=== PATIENT | male | born 1935 | race Caucasian/White ===

== ENCOUNTER 2016-09-13 18:26 | Emergency (ER) | payer MEDICARE ==
--- NOTE | ~2016-09-13 | CT71 ---
[facility] A Service of [facility] & [facility] RADIOLOGY TEXT RESULTS PATIENT: ALBA LÓPEZ LOCATION: [facility] : 34 UNIT #: [id number] AGE: [address]: Zak Jolley DO SEX: M ORDER DR: [id number] [facility] [address] [place], [place] [address] [id number] E MR#: [id number] Acc #: [id number] NAME: ALBA LÓPEZ. : 1935 SEX: M STUDY DATE/TIME: 09/13/2016 18:40 UNIT: [facility] ROOM: STUDY DESCRIPTION: CT Head Wo Contrast Attending Physician: Zak Jolley D.O. Ordering Physician: Zak Jolley D.O. Primary Care Physician: Grant Juárez Jr., M.D. MEDICAL IMAGING REPORT This report is preliminary unless electronic signature is present EXAM CT head without IV contrast COMPARISON None. INDICATIONS 81-year-old male who fell last night and today, now with confusion and lethargy. This CT exam was performed with one or more of the following radiation dose reduction techniques: automatic exposure control, adjustment of mA and/or kV according to patient size, and iterative reconstruction. FINDINGS There is a crescent-shaped area of hypoattenuation over the right temporal and posterior parietal bones with a hyperdense 1.8 cm, subcutaneous hematoma seen posteriorly. These may reflect hematomas of varying ages. In the anterior right parietal lobe these appears to be intraparenchymal hematoma versus subarachnoid acute hemorrhage. More posteriorly in the right frontal lobe there is definitely intraparenchymal hemorrhage measuring up to 1 cm. There is a separate focus of probable extraaxial subarachnoid blood over the anterior right parietal lobe just below the calvaria measuring up to 9 mm. There is also suggestion of a focus of hemorrhage within the right lateral ventricle measuring up to 1.4 cm of uncertain etiology. There is no mass effect or midline shift. Visualized mastoid air cells, middle ears and paranasal sinuses are well-aerated. No evidence of acute fracture. Calcifications of the cavernous internal carotid arteries. There is dnqb-fw-evfpohwb cerebral volume loss for patient age. There are chronic-appearing small vessel ischemic changes seen within the bilateral frontal white matter as well as within the insular white matter bilaterally. There is a focal area of subcortical STS. [facility] A Service of [facility] RADIOLOGY TEXT RESULTS PATIENT: ALBA LÓPEZ LOCATION: [facility] : 34 UNIT #: [id number] AGE: [address]: Zak Jolley DO SEX: M ORDER DR: small vessel ischemic change in the left temporal lobe as well. IMPRESSION 1. Multifocal hemorrhage at the right parietal lobe, 2 foci of which appear to be intraparenchymal 1 which may be in the extraaxial space, possibly subarachnoid. There is also a focus of acute-appearing hemorrhage within the right lateral ventricle of uncertain etiology. CT followup is recommended on a short-term basis to monitor for evolution. These findings of acute intracranial hemorrhage were discussed with Dr. Jolley at approximately 07:00 p.m. on September 13, 2016 and he acknowledged receipt. There is no evidence of mass effect. 2. There is a subcutaneous hematoma over the right parietal and temporal bones, some of which appear subacute and some of which appear acute. There is no associated acute fracture. 3. Bnah-is-gwvcccpa cerebral volume loss for patient age. There are hymt-xt-mnqmnveh chronic appearing small vessel ischemic changes. No midline shift. Dictated by... Freddy Orona M.D. THIS IS AN ELECTRONICALLY VERIFIED REPORT Freddy Orona M.D. at 09/17/2016 9:10 AM BRAYDEN/vasile TD: 09/13/2016 23:01 JOB #: [id number] MEDICAL IMAGING REPORT Page 1 of 1 COPY
--- NOTE | ~2016-09-13 | CT52 ---
[facility] A Service of [facility] & [facility] RADIOLOGY TEXT RESULTS PATIENT: ALBA LÓPEZ LOCATION: [facility] : 34 UNIT #: [id number] AGE: [address]: Zak Jolely DO SEX: M ORDER DR: [id number] [facility] [address] [place], [place] [address] [id number] E MR#: [id number] [facility] #: [id number] NAME: ALBA LÓPEZ. : 1935 SEX: M STUDY DATE/TIME: 09/13/2016 18:47 UNIT: [facility] ROOM: STUDY DESCRIPTION: CT Cervical Spine Wo Cont Attending Physician: Zak Jolley D.O. Ordering Physician: Zak Jolley D.O. Primary Care Physician: Grant Juárez Jr., M.D. MEDICAL IMAGING REPORT This report is preliminary unless electronic signature is present EXAM CT cervical spine without IV contrast COMPARISON None. INDICATION 81-year-old male with neck pain after falling last night and today. This CT exam was performed with one or more of the following radiation dose reduction techniques: automatic exposure control, adjustment of mA and/or kV according to patient size, and iterative reconstruction. FINDINGS Axial CT imaging of the cervical spine was performed without IV contrast. Coronal and sagittal reformats were constructed. Lack of IV contrast limits evaluation of adenopathy, vasculature and viscera. There are calcifications at the level of the left carotid bulb. There are also calcifications of the cavernous internal carotid arteries. Imaged airway is widely patent. No acute findings in the pulmonary apices. Multilevel moderate to severe degenerative facet disease and uncinate hypertrophy of the cervical spine with multilevel degenerative disc height loss. Posterior disc osteophyte complexes are bulky and at least moderate at C3-C4 and C5-C6. There is severe bony neural foraminal narrowing on the left at C3-C4 due to uncinate hypertrophy and degenerative facet disease with moderate neural foraminal narrowing on the left at C4-C5, C5-C6 due to the same factors. There is mild neural foraminal narrowing on the left at C6-C7 due to uncinate hypertrophy primarily. On the right there is moderate neural foraminal narrowing at C3-C4 through C6-C7 due to uncinate hypertrophy and/or degenerative facet disease. There is central canal narrowing at C3-C4 and C5-C6 due to bulky posterior disc osteophyte complexes. No evidence of acute fracture or subluxation of the cervical STS. [facility] A Service of [facility] RADIOLOGY TEXT RESULTS PATIENT: ALBA LÓPEZ LOCATION: [facility] : 34 UNIT #: [id number] AGE: [address]: Zak Jolley DO SEX: M ORDER DR: spine. IMPRESSION 1. No acute fracture or subluxation of the cervical spine. 2. There are moderate to severe degenerative changes at multiple levels of the cervical spine causing multilevel moderate to severe neural foraminal narrowing as described in the body of the report. There is also central canal narrowing at multiple levels due to bulky posterior disc osteophyte complexes as described in the body of the report. 3. Calcifications at the level of the left carotid bulb. Dictated by... Freddy Orona M.D. THIS IS AN ELECTRONICALLY VERIFIED REPORT Freddy Orona M.D. at 09/17/2016 9:00 AM BRAYDEN/vasile TD: 09/13/2016 23:31 JOB #: [id number] MEDICAL IMAGING REPORT Page 1 of 1 COPY
--- NOTE | ~2016-09-13 | CR142 ---
[facility] A Service of [facility] & [facility] RADIOLOGY TEXT RESULTS PATIENT: ALBA LÓPEZ LOCATION: [facility] : 34 UNIT #: [id number] AGE: [address]: Zak Jolley DO SEX: M ORDER DR: [id number] [facility] [address] [place], [place] [address] [id number] E MR#: [id number] Acc #: [id number] NAME: ALBA LÓPEZ. : 1935 SEX: M STUDY DATE/TIME: 09/13/2016 19:03 UNIT: [facility] ROOM: STUDY DESCRIPTION: CR Hand Min 3 Views Rt Attending Physician: Zak Jolley D.O. Ordering Physician: Zak Jolley D.O. Primary Care Physician: Grant Juárez Jr., M.D. MEDICAL IMAGING REPORT This report is preliminary unless electronic signature is present EXAM Right hand 3 views. HISTORY Hand pain after fall today. 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 Mild degenerative changes in the wrist. No acute fracture. There are also mild degenerative changes in IP joints, greater in the thumb. IMPRESSION No acute findings. 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 Dictated by... Ezekiel Yoo M.D. THIS IS AN ELECTRONICALLY VERIFIED REPORT Ezekiel Yoo M.D. at 09/14/2016 1:51 PM AMEENA/vasile TD: 09/13/2016 23:42 JOB #: [id number] MEDICAL IMAGING REPORT Page 1 of 1 COPY
--- NOTE | ~2016-09-13 | CR72 ---
[facility] A Service of [facility] & [facility] RADIOLOGY TEXT RESULTS PATIENT: ALBA LÓPEZ LOCATION: [facility] : 34 UNIT #: [id number] AGE: [address]: Zak Jolley DO SEX: M ORDER DR: [id number] [facility] [address] [place], [place] [address] [id number] E MR#: [id number] Acc #: [id number] NAME: ALBA LÓPEZ. : 1935 SEX: M STUDY DATE/TIME: 09/13/2016 18:57 UNIT: [facility] ROOM: STUDY DESCRIPTION: CR Chest Single View Portable Attending Physician: Zak Jolley D.O. Ordering Physician: Zak Jolley D.O. Primary Care Physician: Grant Juárez Jr., M.D. MEDICAL IMAGING REPORT This report is preliminary unless electronic signature is present EXAM Portable chest HISTORY Cough and congestion and chest pain and syncope today. FINDINGS Cardiac size and pulmonary vascularity are normal. No infiltrates or effusions. Dyqw-kd-nywqejka hypertrophic spurring mid and lower thoracic spine. IMPRESSION No acute findings. Dictated by... Ezekiel Yoo M.D. THIS IS AN ELECTRONICALLY VERIFIED REPORT Ezekiel Yoo M.D. at 09/14/2016 1:51 PM DFL/psc TD: 09/13/2016 23:39 JOB #: [id number] MEDICAL IMAGING REPORT Page 1 of 1 COPY
--- NOTE | ~2016-09-13 | CR141 ---
[facility] A Service of [facility] & [facility] RADIOLOGY TEXT RESULTS PATIENT: ALBA LÓPEZ LOCATION: [facility] : 34 UNIT #: [id number] AGE: [address]: Zak Jolley DO SEX: M ORDER DR: [id number] [facility] [address] [place], [place] [address] [id number] E MR#: [id number] Acc #: [id number] NAME: ALBA LÓPEZ. : 1935 SEX: M STUDY DATE/TIME: 09/13/2016 19:05 UNIT: [facility] ROOM: STUDY DESCRIPTION: CR Hand Min 3 Views Lt Attending Physician: Zak Jolley D.O. Ordering Physician: Zak Jolley D.O. Primary Care Physician: Grant Juárez Jr., M.D. MEDICAL IMAGING REPORT This report is preliminary unless electronic signature is present EXAM Left hand, 3 views HISTORY Hand pain after fall today. FINDINGS 3 views of the left hand demonstrate satisfactory bone alignment. Pulse oximeter overlies and partly obscures the distal third digit. Mild degenerative changes at the first CMC joint. Additional mild degenerative changes in the IP joint of the thumb. No fracture or opaque soft tissue foreign body. IMPRESSION No acute findings. Dictated by... Ezekiel Yoo M.D. THIS IS AN ELECTRONICALLY VERIFIED REPORT Ezekiel Yoo M.D. at 09/14/2016 1:51 PM DFL/psc TD: 09/13/2016 23:43 JOB #: [id number] MEDICAL IMAGING REPORT Page 1 of 1 COPY
--- NOTE | ~2016-09-13 | CR230 ---
[facility] A Service of [facility] & [facility] RADIOLOGY TEXT RESULTS PATIENT: ALBA LÓPEZ LOCATION: [facility] : 34 UNIT #: [id number] AGE: [address]: Zak Jolley DO SEX: M ORDER DR: [id number] [facility] [address] [place], [place] [address] [id number] E MR#: [id number] Acc #: [id number] NAME: ALBA LÓPEZ. : 1935 SEX: M STUDY DATE/TIME: 09/13/2016 18:58 UNIT: [facility] ROOM: STUDY DESCRIPTION: CR Shoulder Min 2 View Rt Attending Physician: Zak Jolley D.O. Ordering Physician: Zak Jolley D.O. Primary Care Physician: Grant Juárez Jr., M.D. MEDICAL IMAGING REPORT This report is preliminary unless electronic signature is present EXAM Right shoulder, 3 views HISTORY Shoulder pain after fall today. FINDINGS 3 views of the right shoulder demonstrate satisfactory bone alignment. No fracture or dislocation. Mild degenerative changes at the acromioclavicular joint. IMPRESSION No acute findings. Dictated by... Ezekiel Yoo M.D. THIS IS AN ELECTRONICALLY VERIFIED REPORT Ezekiel Yoo M.D. at 09/14/2016 1:51 PM DFL/psc TD: 09/13/2016 23:40 JOB #: [id number] MEDICAL IMAGING REPORT Page 1 of 1 COPY
--- NOTE | ~2016-09-13 | CR253 ---
[facility] A Service of [facility] RADIOLOGY TEXT RESULTS PATIENT: ABLA LÓPEZ LOCATION: [facility] : 34 UNIT #: [id number] AGE: [address]: Zak Jolley DO SEX: M ORDER DR: [id number] [facility] [address] [place], [place] [address] [id number] E MR#: [id number] Acc #: [id number] NAME: ALBA LÓPEZ. : 1935 SEX: M STUDY DATE/TIME: 09/13/2016 18:55 UNIT: [facility] ROOM: STUDY DESCRIPTION: CR Tibia and Fibula 2 Views Rt Attending Physician: Zak Jolley D.O. Ordering Physician: Zak Jolley D.O. Primary Care Physician: Grant Juárez Jr., M.D. MEDICAL IMAGING REPORT This report is preliminary unless electronic signature is present EXAM Right tibia and fibula AP and lateral. HISTORY Leg pain after fall today. FINDINGS AP and lateral views of the right tibia-fibula demonstrate normal bone alignment. 5 mm calcification along the medial margin of the tip of the medial malleolus could be an accessory ossicle or avulsion fracture, possibly chronic. No overlying soft tissue swelling. Correlation with the patient's symptoms is recommended. Mild arterial calcifications. Remainder of the exam is negative. No abnormal sclerosis. IMPRESSION 5 mm avulsion fracture versus accessory ossicle adjacent to the medial margin of the tip of the medial malleolus with no overlying soft tissue swelling. This could be chronic. No acute findings on the remainder of the study. Dictated by... Ezekiel Yoo M.D. THIS IS AN ELECTRONICALLY VERIFIED REPORT Ezekiel Yoo M.D. at 09/14/2016 1:51 PM AMEENA/vasile TD: 09/13/2016 23:39 JOB #: [id number] [facility] A Service [facility] RADIOLOGY TEXT RESULTS PATIENT: ALBA LÓPEZ [id number] 34 UNIT #: [id number] AGE: [address]: Zak Jolley DO SEX: M ORDER DR: MEDICAL IMAGING REPORT Page 1 of 1 COPY
--- NOTE | ~2016-09-13 | EKG ---
PATIENT: ALBA LÓPEZ UNIT #: [id number] Ventricular Rate: 99 BPM Atrial Rate: 99 BPM P-R Interval: 152 ms QRS Duration: 124 ms Q-T Interval: 374 ms QTC Calculation(Bezet): 479 ms P Lemhi: 54 degrees Calculated R Lem[place]: 18 degrees Calculated T Lemhi: 11 degrees Diagnosis Line: Normal sinus rhythm Diagnosis Line: Right bundle branch block Diagnosis Line: Septal infarct , age undetermined Diagnosis Line: T wave abnormality, consider inferolateral Diagnosis Line: ischemia Diagnosis Line: Abnormal ECG Diagnosis Line: No previous ECGs available Diagnosis Line: Confirmed by ELIO GAGNON MD ([id number]) on 09/13/2016 Diagnosis Line: 11:01:37 PM INTERPRETING MD: CHELSI NORIEGA
--- NOTE | ~2016-09-13 | CR94 ---
[facility] A Service of [facility] & [facility] RADIOLOGY TEXT RESULTS PATIENT: ALBA LÓPEZ LOCATION: [facility] : 34 UNIT #: [id number] AGE: [address]: Zak Jolley DO SEX: M ORDER DR: [id number] [facility] [address] [place], [place] [address] [id number] E MR#: [id number] Acc #: [id number] NAME: ALBA LÓPEZ. : 1935 SEX: M STUDY DATE/TIME: 09/13/2016 19:00 UNIT: [facility] ROOM: STUDY DESCRIPTION: CR Elbow Min 3 Views Rt Attending Physician: Zak Jolley D.O. Ordering Physician: Zak Jolley D.O. Primary Care Physician: Grant Juárez Jr., M.D. MEDICAL IMAGING REPORT This report is preliminary unless electronic signature is present EXAM Right elbow, 3 views HISTORY Elbow pain after fall today. FINDINGS 3 views of the right elbow demonstrate satisfactory bone alignment. No fracture, joint space narrowing or effusion. Small posterior olecranon spur. IMPRESSION No acute findings. Dictated by... Ezekiel Yoo M.D. THIS IS AN ELECTRONICALLY VERIFIED REPORT Ezekiel Yoo M.D. at 09/14/2016 1:51 PM DFL/rene TD: 09/13/2016 23:41 JOB #: [id number] MEDICAL IMAGING REPORT Page 1 of 1 COPY
[~2016-09-13 18:26] MED LIST: ACCUPRIL PO; BACITRACIN30 GM TOP; KEFLEX PO; LOPID600 MG PO; METFORMIN PO
[2016-09-13 18:37] LABS: BASOPHIL# 0.1 X10e3 (0-0.3); BASOPHIL% 0.6 % (0-2.5); EOSINOPHIL% 0.1 % (0.0-7.0); HEMATOCRIT 43.6 % (38.0-50.0); HEMOGLOBIN 14.5 gm/dL (13.0-16.0); LYMPHOCYTE% 8.5 % (17.0-45.0); MEAN CELL VOLUME 89.5 FL (83-96); MEAN CORPUSCULAR HEMOGLOBIN 29.8 PG (28-34); MEAN CORPUSCULAR HGB CONC 33.3 g/dL (30-36); MEAN PLATELET VOLUME 7.5 FL (6.5-11.5); MONOCYTE# 0.8 X10e3 (0-1.0); MONOCYTE% 6.5 % (3.0-12.0); NEUTROPHIL# 10.4 X10e3 (1.5-7.1); NEUTROPHIL% 84.3 % (40-75); PLATELET COUNT 251 X10e3 (140-420); RED BLOOD COUNT 4.87 X10e (3.90-5.60); RED CELL DISTRIBUTION WIDTH 14.1 % (11.0-15.5); WHITE BLOOD COUNT 12.3 X10e3 (4.0-10.5)
[2016-09-13 18:38] LABS: DIFF IND NO
[2016-09-13 18:49] LABS: INR 1.1; PARTIAL THROMBOPLASTIN TIME 26.8 SECONDS (23.5-31.3); PROTHROMBIN TIME (PATIENT) 11.4 SECONDS (9.6-11.5)
[2016-09-13] MEDS ORDERED: GLUCOPHAGE500 MG PO (18:50)
[2016-09-13] MEDS ORDERED: GLIPIZIDE ER2.5 MG PO (18:52)
[2016-09-13] MEDS ORDERED: LISINOPRIL20 MG PO (18:53)
[2016-09-13 18:55] LABS: POC - CKMB 9.5 ng/mL (0.0-7.9); POC - TROPONIN <0.05 ng/mL (<=0.05)
[2016-09-13 19:10] LABS: ALBUMIN SERUM 4.6 g/dL (3.5-5.0); BILIRUBIN, DIRECT 0.2 mg/dL (0.0-0.2); BILIRUBIN,INDIRECT 1.6 mg/dL (0.0-0.9); BILIRUBIN,TOTAL 1.8 mg/dL (0.2-2.0); CALCIUM SERUM 9.5 mg/dL (8.4-10.2); CREATININE SERUM 0.8 mg/dL (0.6-1.4); GLOM FILT RATE Estimated 83.2 mL/min (>60); POTASSIUM 3.9 mmol/L (3.5-5.1); PROTEIN TOTAL SERUM 8.1 g/dL (6.0-8.3)
== END 2016-09-13 19:55 | disposition hospice, home (50) ==
LOC: CED 18:26
PROVIDERS: Emergency Medicine
DX: S06.309A Unspecified focal traumatic brain injury with loss of consciousness of unspecified duration, initial encounter (principal); S60.222A Contusion of left hand, initial encounter; S60.221A Contusion of right hand, initial encounter; S50.02XA Contusion of left elbow, initial encounter; T14.8 Other injury of unspecified body region; I10 Essential (primary) hypertension; E11.9 Type 2 diabetes mellitus without complications; W19.XXXA Unspecified fall, initial encounter; Y92.009 Unspecified place in unspecified non-institutional (private) residence as the place of occurrence of the external cause
CPT/HCPCS: 36415; 70450; 71010; 72125; 73030; 73080; 73130; 73590; 80048; 80076; 82550; 82553; 84484; 85025; 85610; 85730; 93005; 99291